=== PATIENT | male | born 1965 | race Caucasian/White ===

== ENCOUNTER 2016-07-14 19:32 | Emergency (ER) | payer OTHER ==
--- NOTE | 2016-07-14 20:41 | CPEKG ---
Heart Rate: 63 RR Interval: 952 P-R Interval: 144 QRSD Interval: 92 QT Interval: 396 QTC Interval: 406 P Boykins: 50 QRS Boykins: 88 T Wave Boykins: 54 EKG Severity - BORDERLINE ECG - EKG Impression: SINUS RHYTHM EKG Impression: PROBABLE LEFT ATRIAL ABNORMALITY EKG Impression: ST ELEV, PROBABLE NORMAL EARLY REPOL PATTERN Electronically Signed By: Ihsan Worley 14-Jul-2016 20:58:47
[2016-07-14 20:59] LABS: % IMMATURE GRANULYOCYTES 0.1 % (0.0-1.1); ABSOLUTE IMMATURE GRANULOCYTES 0.01 10^3/uL (0.00-0.10); ADD DIFF? NO; ADD MORPH? NO; ADD SCAN? NO; ATYPICAL LYMPHOCYTE FLAG 10 (0-99); FRAGMENT RBC FLAG 0 (0-99); HEMATOCRIT 47.6 % (40.0-51.0); HEMOGLOBIN 16.7 g/dL (13.7-17.5); LEFT SHIFT FLG 0 (0-99); LIPEMIA HEMOLYSIS FLAG 90 (0-99); MEAN CELL HEMOGLOBIN CONCENTR. 35.1 g/dL (32.4-36.7); MEAN CELL VOLUME 85.6 fL (81.5-99.8); MEAN PLATELET VOLUME 9.8 fL (8.7-11.7); PLATELET CLUMPS FLAG 0 (0-99); PLATELET COUNT 222 10^3/uL (150-400); RED BLOOD CELL COUNT 5.56 10^6/uL (4.40-6.38); RED CELL DISTRIBUTION WIDTH 12.3 % (11.5-15.2)
[2016-07-14 21:12] LABS: ANION GAP 15 mEq/L (8-16); CALCIUM 9.5 mg/dL (8.5-10.4); CARBON DIOXIDE 23 mEq/l (22-31); CHLORIDE 102 mEq/L (97-110); CREATININE 1.1 mg/dL (0.7-1.3); GLOMERULAR FILTRATION RATE > 60; GLUCOSE 111 mg/dL (70-100); POTASSIUM 3.7 mEq/L (3.5-5.2); SODIUM 140 mEq/L (134-144)
--- NOTE | 2016-07-14 21:14 | UCPHY ---
H & P Patient Type: New Chief Complaint Nursing Narrative: wheezing at night/cold/congestion/fever x 3 months after exposure to fiberglass inhalation. then had spider bite on R thigh , and has felt bad ever since. Time Seen by Provider: 07/14/16 20:15 HPI/ROS: This patient has had a chronic cough. For the past 3 months he has had varying degrees of a dry cough. He also feels a subtle wheezing sensation in his chest intermittently that has been more prominent over the past week. He notices this primarily when he is lying flat. Last night he feels he had a mild subjective fevers associated with the symptoms. He notes no clear exacerbating or alleviating factors other than the position-mild worsening when lying supine. He was exposed to diarrhea phone just after cutting steroid foam for a project at home at the onset of the symptoms 3 months ago and he and his wonder if the symptoms may be related to that exposure. ROS No fevers per- no high fevers or chills. No significant fatigue. No other constitutional symptoms. HEENT: Intermittent mild coryza including currently. No facial pain. No ear pain. No throat pain. Pulmonary: No pleuritic pain. No respiratory distress. Cardiovascular: No chest pain. He reports no heart palpitations. No leg swelling. No significant dyspnea on exertion. GI: No symptoms. Integumentary: No rash endocrine: No symptoms 10 point ROS is otherwise negative. Source: Patient, Family (His spouse also provides history) Exam Limitations: No limitations - Personal History Current Tetanus Diphtheria and Acellular Pertussis (TDAP): Unsure - Medical/Surgical History PMH: Otherwise healthy Hypercholesterolemia Hx Asthma: No Hx Chronic Respiratory Disease: No Hx Diabetes: No Hx Cardiac Disease: No Hx Renal Disease: No Hx Cirrhosis: No Hx Alcoholism: No Hx HIV/AIDS: No Hx Splenectomy or Spleen Trauma: No Other PMH: facial surgery, bone spurs - Family History Significant Family History: No pertinent family hx, Other (Negative for premature coronary artery disease) - Social History Smoking Status: Never smoked Alcohol Use: Occasionally Drug Use: Marijuana - Physical Exam Exam: General Appearance: Alert, no distress. Eyes: Pupils equal and round no pallor or injection. ENT, Mouth: Mucous membranes moist. Respiratory: Clear to auscultation. I appreciate no wheeze currently. No rales. No rhonchi. Cardiovascular: Regular rate and rhythm. No murmur gallop rub. No JVD. No leg swelling or tenderness Gastrointestinal: Abdomen is soft and nontender, no masses, bowel sounds normal. Neurological: Alert with no focal deficits Skin: Warm and dry, no rashes. Musculoskeletal: Neck is supple nontender. Extremities are symmetrical, full range of motion. Psychiatric: Mood and affect are normal DIFFERENTIAL DIAGNOSIS: After history and physical exam differential diagnosis was considered for reactive airway disease, interstitial lung disease, mild CHF , rule out coronary syndrome, viral illness, seasonal allergies with cough Constitutional: Initial Vital Signs Temperature (C) 37.1 C 07/14/16 19:40 Heart Rate 69 07/14/16 19:40 Respiratory Rate 16 07/14/16 19:40 Blood Pressure 121/75 H 07/14/16 19:40 O2 Sat (%) 96 07/14/16 19:40 O2 Delivery Mode Room Air Allergies/Adverse Reactions: No Known Allergies Allergy (Unverified 07/14/16 19:48) Home Medications: Medication Instructions Recorded Fluticasone Hfa 220 Mcg [Flovent 2 puffs IH DAILY #1 mdi 07/14/16 220 MCG Hfa MDI (*)] Medical Decision Making - Diagnostics EKG Interpretation: 12 lead EKG performed shortly after arrival at 8:39 p.m. Sinus rhythm at 63 Intervals: Normal throughout [place]: P of 50, QRS of 80, T of 54 ST segments: Patient has early repolarization pattern inferiorly and also an anterolateral leads V3 through V6. No previous EKG for comparison overall assessment sinus rhythm with early report pattern Imaging: Chest x-ray: Normal by my interpretation, confirmed by radiologist who noted old healed 6th rib fracture ED Course/Re-evaluation: Peak flow of 630 exceeds is expected peak flow of 620. A review of his labs shows a CBC with normal white count, mild elevation of eosinophils and lymphocytes on differential. Troponin is normal. BNP is normal. Electrolytes are normal, renal function normal. Discussion: After workup, no evidence of pneumothorax, pneumonia, significant obstructive airway disease, coronary syndrome, CHF. He may have an element of this seasonal allergies given his symptoms. Will start him on Flovent as a trial with plan to follow up with gastroenterologist- Dr. Singh for any ongoing symptoms despite the treatment plan. Also encouraged to follow up with Dr. Keshawn Matthews, tour director for further evaluation for any ongoing symptoms despite the plan. - Data Points Laboratory Results: Laboratory Results 07/14/16 20:52 07/14/16 20:52 07/14/16 07/14/16 20:52 20:52 WBC 7.66 10^3/uL 10^3/uL (3.80-9.50) RBC 5.56 10^6/uL 10^6/uL (4.40-6.38) Hgb 16.7 g/dL g/dL (13.7-17.5) Hct 47.6 % % (40.0-51.0) MCV 85.6 fL fL (81.5-99.8) MCH 30.0 pg pg (27.9-34.1) MCHC 35.1 g/dL g/dL (32.4-36.7) RDW 12.3 % % (11.5-15.2) Plt Count 222 10^3/uL 10^3/uL (150-400) MPV 9.8 fL fL (8.7-11.7) Neut % (Auto) 38.7 % L % (39.3-74.2) Lymph % (Auto) 47.1 % H % (15.0-45.0) [place] % (Auto) 7.8 % % (4.5-13.0) Eos % (Auto) 5.5 % % (0.6-7.6) Baso % (Auto) 0.8 % % (0.3-1.7) Nucleat RBC Rel Count 0.0 % % (0.0-0.2) Absolute Neuts (auto) 2.96 10^3/uL 10^3/uL (1.70-6.50) Absolute Lymphs (auto) 3.61 10^3/uL H 10^3/uL (1.00-3.00) Absolute Monos (auto) 0.60 10^3/uL 10^3/uL (0.30-0.80) Absolute Eos (auto) 0.42 10^3/uL H 10^3/uL (0.03-0.40) Absolute Basos (auto) 0.06 10^3/uL 10^3/uL (0.02-0.10) Absolute Nucleated RBC 0.00 10^3/uL 10^3/uL (0-0.01) Immature Gran % 0.1 % % (0.0-1.1) Immature Gran # 0.01 10^3/uL 10^3/uL (0.00-0.10) Sodium 140 mEq/L mEq/L (134-144) Potassium 3.7 mEq/L mEq/L (3.5-5.2) Chloride 102 mEq/L mEq/L (97-110) Carbon Dioxide 23 mEq/l mEq/l (22-31) Anion Gap 15 mEq/L mEq/L (8-16) BUN 18 mg/dL mg/dL (7-23) Creatinine 1.1 mg/dL mg/dL (0.7-1.3) Estimated GFR > 60 Glucose 111 mg/dL H mg/dL (70-100) Calcium 9.5 mg/dL mg/dL (8.5-10.4) Troponin I < 0.012 ng/mL ng/mL (0-0.034) NT-Pro-B Natriuret Pep 33 pg/mL pg/mL (0-125) Departure - Departure Disposition: Home, Routine, Self-Care Clinical Impression: Wheezing symptom Clinical Impression: (Ruled Out): Wheeze Condition: Good Instructions: Wheezing (ED) Additional Instructions: Diagnosis: Wheezing symptoms Tonight your chest x-ray looks normal. You have a normal peak flow. Your blood count shows a very mild elevation of the eosinophils and lymphocytes associated with allergic and viral processes. Plan: Flovent steroid inhaler to diminish bronchial inflammation. This may resolve your wheezing. Follow up with Dr. Singh-gastroenterologist if your symptoms persist despite this plan. Consider follow-up with Dr. Matthews-tour director for a stress test as well for any ongoing symptoms despite the treatment plan Go to the emergency department for any significant worsening of symptoms Referrals: MELINDA ALEMAN [Primary Care Provider] - As per Instructions Yeison Singh MD [Medical Doctor] - As per Instructions Keshawn Matthews MD [Medical Doctor] - As per Instructions Prescriptions: Fluticasone Hfa 220 Mcg [Flovent 220 MCG Hfa MDI (*)] 2 puffs IH DAILY #1 mdi - PQRS PQRS Measurement: NA
[2016-07-14 21:25] LABS: TROPONIN I < 0.012 ng/mL (0-0.034)
[2016-07-14 22:01] VITALS: BP 107/62; PULSE 70; RESP 18; TEMP 98.1; O2SAT 94
== END 2016-07-14 22:01 | disposition home or self-care (01) ==
LOC: CED 19:32
DX: R06.2 Wheezing (principal); E78.5 Hyperlipidemia, unspecified
CPT/HCPCS: 71020-PO; 80048-PO; 83880-PO; 84484-PO; 85025-PO; 93010-PO; 99205-PO; G0463-PO

== ENCOUNTER 2018-01-25 19:57 | Emergency (ER) | payer OTHER ==
[2018-01-25 20:06] VITALS: BP 113/76
[2018-01-25] MEDS ORDERED: SULFAMETHOX/TMP 800/160 MG 1 TAB PO ONE (20:14)
--- NOTE | 2018-01-25 20:17 | EDPHY ---
H & P Stated Complaint: c/o bug bites to back and abd x 2 wks with inc. redness and swelling @site Time Seen by Provider: 01/25/18 20:09 HPI/ROS: CHIEF COMPLAINT: Bug bite HISTORY OF PRESENT ILLNESS: Patient is a 52-year-old man who comes to the emergency department complaining of a small pustule to his left lower quadrant region. He thinks that he is being bitten by spiders repeatedly at home. His girlfriend thinks that it is probably a black . He has not had any GI symptoms. No fevers. He had 2 bites on his back last week that they drained at home and have since healed. There is some mild skin irritation surrounding where they had placed garlic and a Band-Aid. Severity: Mild Modifying factors: None REVIEW OF SYSTEMS: Constitutional: denies: chills, fever, recent illness, recent injury EENTM: denies: blurred vision, double vision, nose congestion Respiratory: denies: cough, shortness of breath Cardiac: denies: chest pain, irregular heart rate, lightheadedness, palpitations Gastrointestinal/Abdominal: denies: abdominal pain, diarrhea, nausea, vomiting, blood streaked stools Genitourinary: denies: dysuria, frequency, hematuria, pain Musculoskeletal: denies: joint pain, muscle pain Skin: See HPI Neurological: denies: headache, numbness, paresthesia, tingling, dizziness, weakness Hematologic/Lymphatic: denies: blood clots, easy bleeding, easy bruising Immunologic/allergic: denies: HIV/AIDS, transplant 10 systems reviewed and negative except as noted EXAM: GENERAL: Well-appearing, well-nourished and in no acute distress. HEAD: Atraumatic, normocephalic. EYES: Pupils equal round and reactive to light, extraocular movements intact, sclera anicteric, conjunctiva are normal. ENT: TMs normal, nares patent, oropharynx clear without exudates. Moist mucous membranes. NECK: Normal range of motion, supple without lymphadenopathy or JVD. LUNGS: Breath sounds clear to auscultation bilaterally and equal. No wheezes rales or rhonchi. HEART: Regular rate and rhythm without murmurs, rubs or gallops. ABDOMEN: Soft, nontender, normoactive bowel sounds. No guarding, no rebound. No masses appreciated. BACK: No CVA tenderness, no spinal tenderness, step-offs or deformities EXTREMITIES: Normal range of motion, no pitting or edema. No clubbing or cyanosis. NEUROLOGICAL: Cranial nerves II through XII grossly intact. Normal speech, normal gait. 5/5 strength, normal movement in all extremities, normal sensation , normal reflexes PSYCH: Normal mood, normal affect. SKIN: Small 1 x 1 cm post told to left lower quadrant. No surrounding cellulitis. Source: Patient Exam Limitations: No limitations - Medical/Surgical History Hx Asthma: No Hx Chronic Respiratory Disease: No Hx Diabetes: No Hx Cardiac Disease: No Hx Renal Disease: No Hx Cirrhosis: No Hx Alcoholism: No Hx HIV/AIDS: No Hx Splenectomy or Spleen Trauma: No Other PMH: facial surgery, bone spurs - Family History Significant Family History: No pertinent family hx - Social History Smoking Status: Never smoked Alcohol Use: Sober Drug Use: None Constitutional: Initial Vital Signs Temperature (C) 37.2 C 01/25/18 20:00 Heart Rate 60 01/25/18 20:00 Respiratory Rate 18 01/25/18 20:00 Blood Pressure 113/76 01/25/18 20:00 O2 Sat (%) 97 01/25/18 20:00 O2 Delivery Mode Room Air Allergies/Adverse Reactions: No Known Allergies Allergy (Unverified 07/14/16 19:48) Home Medications: Medication Instructions Recorded Fluticasone Hfa 220 Mcg [Flovent 2 puffs IH DAILY #1 mdi 07/14/16 220 MCG Hfa MDI (*)] Sulfamethox/Tmp 800/160 mg 1 tab PO BID #14 tab 01/25/18 [Bactrim Ds] Medical Decision Making Procedures: Procedure: Abscess drainage. The patient's abscess was located on the abdomen. I obtained verbal consent from the patient to drain the abscess who was informed about the possibility of bleeding and pain. The abscess was incised with an 11 blade scalpel and less than 1 cc of purulent drainage was expressed. The patient tolerated the procedure well. The procedure was performed by myself. ED Course/Re-evaluation: The patient is requesting I&D and antibiotics. is concerned because of the multiple small pustules recently and is requesting antibiotics. Differential Diagnosis: Partial list of the Differential diagnosis considered include but were not limited to; abscess, pustule, zoster and although unlikely based on the history and physical exam, I also considered tick borne illness, sepsis. I discussed these differential diagnoses and the plan with the patient as well as the usual and expected course. The patient understands that the diagnosis is provisional and that in medicine we are not always correct and that further workup is often warranted. Usual and customary warnings were given. All of the patient's questions were answered. The patient was instructed to return to the emergency department should the symptoms at all worsen or return, otherwise to followup with the physician as we discussed. - Data Points Medications Given: Discontinued Medications Trimethoprim/Sulfamethoxazole (Bactrim Ds) 1 ea PO EDNOW ONE PRN Reason: Protocol Stop: 01/25/18 20:15 Last Admin: 01/25/18 20:27 Dose: 1 ea Departure - Departure Disposition: Home, Routine, Self-Care Clinical Impression: Abscess Condition: Fair Instructions: Abscess (ED) Referrals: Luz Maxwell MD [Primary Care Provider] - As per Instructions Prescriptions: Sulfamethox/Tmp 800/160 mg [Bactrim Ds] 1 tab PO BID #14 tab
== END 2018-01-25 20:28 | disposition home or self-care (01) ==
LOC: CED 19:57
PROC: 0H97XZZ Drainage of Abdomen Skin, External Approach (ICD-10-PCS; principal; 2018-01-25)
DX: L02.219 Cutaneous abscess of trunk, unspecified (principal)

== ENCOUNTER → 2018-02-20 | Outpatient (CLI) | payer OTHER | LOC: CIMAGING 10:13 | PROVIDERS: ATTEND Family Medicine | DX: Z13.6 Encounter for screening for cardiovascular disorders (principal); E78.00 Pure hypercholesterolemia, unspecified | CPT/HCPCS: 75571-PO ==

== ENCOUNTER → 2018-03-10 | Outpatient (CLI) | payer OTHER ==
[~2018-03-10] MED LIST: GADOBUTROL 10 ML VIAL IVP ONE
== END ==
LOC: FIMAGING 10:16
PROVIDERS: ATTEND Psychiatry & Neurology Neurology
DX: R20.9 Unspecified disturbances of skin sensation (principal); M26.69 Other specified disorders of temporomandibular joint
CPT/HCPCS: A9585